=== PATIENT | male | born 1990 | race Caucasian/White ===

== ENCOUNTER 2016-10-02 14:37 | Emergency (ER) | payer SELFPAY ==
[~2016-10-02] VITALS: Ht 170.2 cm; Wt 81.8 kg
[2016-10-02] MEDS ORDERED: FLUO-191 PO (15:35)
[2016-10-02] MEDS ORDERED: LORA1TAB3 PO (15:35)
[2016-10-02 15:55] VITALS: BP 136/87
[2016-10-02] MEDS ORDERED: LORazepam 2 MG TABLET PO ONE (16:00)
== END 2016-10-02 17:45 | disposition home or self-care (01) ==
LOC: EMS 14:39
DX: F41.9 Anxiety disorder, unspecified (principal); F32.9 Major depressive disorder, single episode, unspecified; F10.20 Alcohol dependence, uncomplicated; Z79.899 Other long term (current) drug therapy
CPT/HCPCS: 99284